=== PATIENT | female | born 1950 | race Caucasian/White ===

== ENCOUNTER 2018-02-21 07:21 | Emergency (ER) | payer MEDICARE, BC ==
[~2018-02-21] VITALS: Ht 177.8 cm; Wt 113.0 kg
[2018-02-21 08:07] LABS: CLARITY,URINE CLEAR (Clear); COLOR,URINE YELLOW (Yellow); GLUCOSE, URINE NEGATIVE (Neg); KETONES,URINE NEGATIVE (Neg); LEUKOCYTE ESTERASE ,URINE NEGATIVE (Neg); NITRITES, URINE NEGATIVE (Neg); OCCULT BLOOD,URINE SMALL (Neg); PROTEIN,URINE 100 mg/dl (Neg); UA COLLECTION TYPE CLN CATCH MIDSTREAM
[2018-02-21 08:10] LABS: BASOPHILS % (AUTO) 0.3 % (0-1); HEMATOCRIT 42.9 % (35.0-45.0); HEMOGLOBIN 14.4 g/dl (12.0-16.0); LYMPHOCYTES # (AUTO) 1.2 X10'3 (1.1-4.8); LYMPHOCYTES % (AUTO) 29.4 % (21-51); MEAN CORPUSCULAR HEMOGLOBIN 29.1 PG (27.0-31.0); MEAN CORPUSCULAR HGB CONC 33.7 % (33.0-36.5); MEAN CORPUSCULAR VOLUME 86.4 FL (78-98); MEAN PLATELET VOLUME 8.5 FL (7.4-10.4); MONOCYTES # (AUTO) 0.4 X10'3 (0-0.9); MONOCYTES % (AUTO) 8.4 % (2-12); NEUTROPHILS # (AUTO) 2.5 X10'3 (1.8-7.7); NEUTROPHILS % (AUTO) 60.9 % (42-75); PLATELET COUNT 176 X10'3 (140-440); RED BLOOD COUNT 4.96 X10'6 (4.20-5.60); RED CELL DISTRIBUTION WIDTH 13.6 % (11.5-14.5); WHITE BLOOD COUNT 4.2 X10'3 (4.5-11.0)
[2018-02-21 08:13] LABS: ALANINE AMINOTRANSFERASE 47 U/L (12-78); ALBUMIN 3.4 G/DL (3.4-5.0); ALBUMIN/GLOBULIN RATIO 0.9 (1.1-1.5); ALKALINE PHOSPHATASE 101 IU/L (46-116); ANION GAP 8 (8-16); ASPARTATE AMINO TRANSFERASE 42 U/L (10-37); BILIRUBIN,TOTAL 0.6 MG/DL (0.1-1.0); BLOOD UREA NITROGEN 13 MG/DL (7-18); BUN/CREATININE RATIO 15.3 (6.6-38.0); CALCIUM 8.6 MG/DL (8.5-10.1); CHLORIDE 102 MMOL/L (99-107); CREATININE 0.85 MG/DL (0.40-0.90); GLUCOSE 221 MG/DL (70-104); POTASSIUM 3.9 MMOL/L (3.5-5.1); SODIUM 138 MMOL/L (135-145); TOTAL CARBON DIOXIDE 28.1 MMOL/L (24-32); eGFR 66 ML/MIN
[2018-02-21 08:14] LABS: BACTERIA,URINE NONE SEEN /HPF (Neg); RBC,URINE 0-2 /HPF (0-2); SQUAMOUS EPITHELIAL CELL,UR FEW /LPF (FEW); WBC,URINE 0-4 /HPF (0-4)
[2018-02-21 08:15] LABS: MUCUS STRANDS NONE SEEN /LPF (Neg)
[2018-02-21 08:32] LABS: MAGNESIUM 1.7 MG/DL (1.5-2.4)
[2018-02-21] MEDS ORDERED: normal saline 1000ML IV soln IVB ONE (09:25)
[2018-02-21] MEDS ORDERED: albuterol 2.5 MG/3 ML nebule NEB ONE (10:25)
[2018-02-21 11:11] LABS: ABG BASE EXCESS 1.4 mmol/L (-2.0-3.0); ABG HCO3 26.6 mmol/L (22.0-26.0); ABG OXYGEN SATURATION 92.2 % (95-98); ABG PCO2 (T) 44.2 mmHg (32.0-45.0); ABG PH (T) 7.398 (7.350-7.450); ABG PO2 (T) 61.3 mmHg (83-108); ALLEN'S TEST Positive; FCOHb 0.4 % (0.5-1.5); FMetHb 0.1 % (0.3-1.12); FO2Hb 91.7 % (94-100); TOTAL HEMOGLOBIN 14.2 G/dl (12.0-16.0)
[2018-02-21 12:10] VITALS: BP 147/55
== END 2018-02-21 12:12 | disposition home or self-care (01) ==
LOC: ER 07:22
DX: R11.2 Nausea with vomiting, unspecified (principal); R19.7 Diarrhea, unspecified; J44.9 Chronic obstructive pulmonary disease, unspecified; Z90.49 Acquired absence of other specified parts of digestive tract; Z88.0 Allergy status to penicillin; Z88.2 Allergy status to sulfonamides
CPT/HCPCS: 36415; 36600; 71046; 80053; 81001; 82803; 83605; 83735; 83880; 84145; 84484; 85018; 85025; 85610; 87040; 93005; 94640; 94760; 96360; 99285; J7030

== ENCOUNTER 2020-06-03 12:29 | Outpatient (CLI) | payer MEDICARE, BC ==
[~2020-06-03 12:29] MED LIST: CYCL-1 PO
== END 2020-06-03 23:59 | disposition home or self-care (01) ==
LOC: CARD DIAG 12:29
PROVIDERS: ATTEND Internal Medicine Cardiovascular Disease
DX: I08.0 Rheumatic disorders of both mitral and aortic valves (principal)
CPT/HCPCS: 93306

== ENCOUNTER 2023-02-04 12:40 | Emergency (ER) | payer MEDICARE, BC ==
[~2023-02-04] VITALS: Ht 177.8 cm; Wt 115.9 kg
[2023-02-04] MEDS ORDERED: oxyCODONE/APAP 5-325mg tablet PO ONE (15:20)
[2023-02-04 16:06] VITALS: BP 162/52
[2023-02-04] MEDS ORDERED: OXYC-150 PO (18:25)
== END 2023-02-04 19:19 | disposition home or self-care (01) ==
LOC: ER 12:40
DX: M25.561 Pain in right knee (principal); M25.562 Pain in left knee; J44.9 Chronic obstructive pulmonary disease, unspecified; G89.29 Other chronic pain; M54.9 Dorsalgia, unspecified; Z90.49 Acquired absence of other specified parts of digestive tract; Z88.0 Allergy status to penicillin; Z88.2 Allergy status to sulfonamides; Z79.899 Other long term (current) drug therapy; Z88.6 Allergy status to analgesic agent; Z88.1 Allergy status to other antibiotic agents
CPT/HCPCS: 72220; 73564; 99284